=== PATIENT | male | born 1985 | race Caucasian/White ===

== ENCOUNTER 2022-03-06 16:29 | Emergency (ER) | payer OTHER ==
[~2022-03-06] VITALS: Ht 172.7 cm; Wt 75.7 kg
[~2022-03-06 16:29] MED LIST: LEVSIN0.125 MG PO; PEPCID20 MG PO; PRILOSEC20 MG
[2022-03-06] MEDS ORDERED: GEMFIBROZIL600 MG PO (17:22)
== END 2022-03-07 00:39 | disposition home or self-care (01) ==
LOC: ER 16:29
DX: M54.2 Cervicalgia (principal)